=== PATIENT | female | born 1980 | race Caucasian/White ===

== ENCOUNTER 2021-08-27 18:44 | Emergency (ER) | payer OTHER ==
[~2021-08-27] VITALS: Ht 157.5 cm; Wt 51.7 kg
[~2021-08-27 18:44] MED LIST: FAMOTIDINE20 MG PO; FEMARA2.5 MG NG; LISINOPRIL20 MG PO; MOTRIN800 MG PO; NORCO 5-325 TA1 EACH PO; OMEPRAZOLE20 M1 PO; SEN-O-TAB8.6 MG PO; TUMS200 MG PO; WOMEN'S DAILY1 EACH PO; [UNRECOGNIZED DRUG - OTHER]
[2021-08-27] MEDS ORDERED: ONDANSETRON ODT8 MG PO (22:18)
== END 2021-08-27 23:15 | disposition home or self-care (01) ==
LOC: ED 18:44
DX: K29.00 Acute gastritis without bleeding (principal); Z88.0 Allergy status to penicillin; Z79.899 Other long term (current) drug therapy
CPT/HCPCS: 36415; 80053; 81001; 83690; 83735; 84703; 85025; 96374; 96375; 99284-25; A9270; J2405; J2765; J7030

== ENCOUNTER 2021-08-29 09:59 | Emergency (ER) | payer OTHER ==
[~2021-08-29] VITALS: Ht 157.5 cm; Wt 52.3 kg
[~2021-08-29 09:59] MED LIST changes: +ONDANSETRON ODT8 MG PO
--- OUTSIDE RECORDS SUMMARY | 2021-08-29 10:06 | XMS ---
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 [facility]antos VISIT COUNT (12 MO.) 2 [facility] TOTAL 2 NOTE: Visits indicate total known visits. ED/UCC VISIT TRACKING (12 MO.) 08/29/2021 09:59 [facility] TYPE: Emergency COMPLAINT: - VOMITING 08/27/2021 18:45 [facility] TYPE: Emergency COMPLAINT: - VOMITING INPATIENT VISIT TRACKING (12 MO.) No inpatient visits to display in this time frame [email or web address]
== END 2021-08-29 16:00 | disposition short-term general hospital (02) ==
LOC: ED 09:59
DX: K95.09 Other complications of gastric band procedure (principal); K56.609 Unspecified intestinal obstruction, unspecified as to partial versus complete obstruction; Z85.3 Personal history of malignant neoplasm of breast; Z88.0 Allergy status to penicillin; Z79.899 Other long term (current) drug therapy
CPT/HCPCS: 36415; 71045; 74177; 80053; 83690; 83735; 84703; 85025; 96375; 99285-25; C9803; J0780; J2765; J7030; Q9967; U0003

== ENCOUNTER 2025-02-01 10:47 | Emergency (ER) | payer OTHER ==
[~2025-02-01] VITALS: Ht 157.5 cm; Wt 65.7 kg
[2025-02-01 11:12] LABS: BASOPHILS 0.3 % (0.1-1.2); EOSINOPHILS 0.7 % (0.7-5.8); LYMPHOCYTES 22.7 % (19.3-51.7); MCH 28.5 PG (25.6-32.2); MCHC 34.4 g/dL (32.2-35.5); MCV 82.7 fL (79.4-94.8); MONOCYTES 4.6 % (4.7-12.5); NEUTROPHILS 71.3 % (34.0-71.1); RBC 5.09 M/uL (3.93-5.22)
[2025-02-01] MEDS ORDERED: ASPIRIN 81 MG CHEW PO ONE (11:15)
[2025-02-01] MEDS ORDERED: NITROGLYCERIN 0.4 MG SUBL SL PRN (11:15)
[2025-02-01] MEDS ORDERED: LISINOPRIL5 MG PO (11:17)
[2025-02-01 11:35] LABS: AST (SGOT) 18 U/L (15-37); GLOMERULAR FILTRATION RATE,EST 82 mL/min (>60); PROTEIN, TOTAL 8.5 g/dL (6.4-8.2); UREA NITROGEN 19 mg/dL (7-18)
[2025-02-01 11:38] LABS: ALT (SGPT) <6 U/L (14-59)
[2025-02-01 12:37] VITALS: BP 123/91
--- NOTE | 2025-02-01 14:44 | EKG ---
[facility] [address] [place], [place] [address] Signed Normal sinus rhythm with sinus arrhythmia Normal ECG No previous ECGs available Confirmed by LAURE SALEEM MD ([id number]) on 02/01/2025 2:43:52 PM Electronically Signed By: LAURE SALEEM 02/01/25 1444 PATIENT NAME: JAROD SANCHEZ Electrocardiogram DATE OF : 76 PHYSICIAN: LAURE SALEEM REPORT #: [id number] REPORT IS CONFIDENTIAL AND NOT TO BE RELEASED WITHOUT AUTHORIZATION
== END 2025-02-01 12:38 | disposition home or self-care (01) ==
LOC: ED 10:47
PROVIDERS: Emergency Medicine
DX: R00.2 Palpitations (principal); Z88.0 Allergy status to penicillin; Z79.899 Other long term (current) drug therapy
CPT/HCPCS: 36415; 71045; 80053; 83735; 84484; 85025; 93005; 93010; 93242; 93244; 99285-25